=== PATIENT | female | born 1980 | race Caucasian/White ===

== ENCOUNTER 2022-05-27 08:58 | Outpatient (CLI) | payer BC ==
--- NOTE | 2022-05-27 16:47 | Ultrasound Report ---
PROCEDURE: Abdomen Complete INDICATIONS: RUQ PAIN TECHNIQUE: Real-time scanning was performed of the abdominal and retroperitoneal organs, with image documentatio n. COMPARISON: None. FINDINGS: Liver: The liver demonstrates diffusely increased echotexture without focal abnormalities which is c onsistent with chronic hepatocellular disease/hepatic steatosis. Gallbladder: Multiple mobile gallstones measuring up to 5 mm. No wall thickening. No pericholecystic fluid. No reported abnormal sonographic Diehl's sign. Biliary ducts: Intrahepatic bile ducts are non-dilated. Extrahepatic bile duct caliber measures 4.5 mm. Normal is 6-7 mm or less in diameter, or 10 mm or less post-cholecystectomy. Pancreas: Visualized portions of the pancreas are sonographically normal. Spleen: Spleen is normal in size and homogeneous in echotexture. Kidneys: Kidneys are normal in size and echotexture. Right kidney measures 11.0 cm long; left kidne y measures 11.7 cm long. No hydronephrosis or nephrolithiasis. No solid masses. Aorta: Visualized aorta is normal in caliber at less than 3 cm. Iliacs: Proximal common iliac arteries are normal in caliber at less than 2.5 cm. IVC: Intrahepatic inferior vena cava is patent. Miscellaneous: No free abdominal fluid. IMPRESSION: 1. Cholelithiasis without sonographic evidence for acute cholecystitis. 2. Diffusely echogenic liver echotexture which may represent hepatic steatosis versus sequela of mac developer evan hepatocellular disease. Recommend clinical and laboratory correlation. Reviewed by: Reno Jauregui MD on 05/27/2022 4:45 PM PDT Approved by: Reno Jauregui MD on 05/27/2022 4:45 PM PDT Station ID: [id number]
== END 2022-05-27 08:59 | disposition home or self-care (01) ==
LOC: DI 08:58
DX: K80.20 Calculus of gallbladder without cholecystitis without obstruction (principal)